=== PATIENT | female | born 1990 | race Caucasian/White ===

== ENCOUNTER 2018-04-26 14:35 | Emergency (ER) | payer MEDICAID ==
[~2018-04-26] VITALS: Ht 162.6 cm; Wt 53.0 kg
[2018-04-26 19:06] LABS: BASOPHILS % 0.9 % (0.0-2.0); HEMATOCRIT. 40.6 % (36.0-48.0); HEMOGLOBIN. 14.2 g/dL (12.0-16.0); MEAN CORPUSCULAR HEMOGLOBIN 28.9 pg (28.0-32.0); MEAN CORPUSCULAR VOLUME 82.5 fL (81.0-99.0); MEAN PLATELET VOLUME 7.7 fl (7.4-10.4); MONOCYTES % 4.7 % (2.0-8.0); NEUTROPHILS % 76.4 % (40.0-76.0); PLATELET 260 x1000/uL (130-400); RED BLOOD CELL COUNT 4.91 mill/uL (4.2-5.4); RED CELL DISTRIBUTION WIDTH 14.5 % (11.6-14.6)
[2018-04-26 19:13] LABS: CHLORIDE 103 mEq/L (98-107)
[2018-04-26 19:16] LABS: HCG SCREEN NEGATIVE
[2018-04-26 19:26] LABS: B-HCG QUANTITATIVE < 1 mIU/mL (<3)
[2018-04-26 20:38] VITALS: BP 131/65
== END 2018-04-26 20:38 | disposition home or self-care (01) ==
LOC: ER 14:35
DX: N93.8 Other specified abnormal uterine and vaginal bleeding (principal); N64.3 Galactorrhea not associated with childbirth; F17.200 Nicotine dependence, unspecified, uncomplicated; F12.10 Cannabis abuse, uncomplicated; E87.6 Hypokalemia; Z98.890 Other specified postprocedural states
CPT/HCPCS: 36415; 84702; 84703; 86850; 86900; 99283